=== PATIENT | female | born 1990 | race Caucasian/White ===

== ENCOUNTER → 2021-02-12 | Outpatient (CLI) | payer BC | LOC: LABMAIN 21:31 | PROVIDERS: ATTEND Internal Medicine | DX: Z20.822 Contact with and (suspected) exposure to COVID-19 (principal) | CPT/HCPCS: 87635 ==

== ENCOUNTER → 2021-03-16 | Outpatient (CLI) | payer BC | END | disposition home or self-care (01) | LOC: LABWHC1 03-15 10:31 | PROVIDERS: ATTEND Obstetrics & Gynecology Reproductive Endocrinology | DX: Z32.00 Encounter for pregnancy test, result unknown (principal) | CPT/HCPCS: 36415; 84144; 84702 ==

== ENCOUNTER → 2021-04-03 | Outpatient (CLI) | payer BC | END | disposition home or self-care (01) | LOC: LABWHC1 08:37 | PROVIDERS: ATTEND Obstetrics & Gynecology Reproductive Endocrinology | DX: N97.8 Female infertility of other origin (principal) | CPT/HCPCS: 36415; 84144 ==

== ENCOUNTER → 2021-04-13 | Outpatient (CLI) | payer BC | END | disposition home or self-care (01) | LOC: LABWHC1 08:04 | PROVIDERS: ATTEND Obstetrics & Gynecology Reproductive Endocrinology | DX: Z32.00 Encounter for pregnancy test, result unknown (principal) | CPT/HCPCS: 36415; 84144; 84702 ==

== ENCOUNTER → 2021-06-07 | Outpatient (CLI) | payer BC | END | disposition home or self-care (01) | LOC: LABWHC1 08:20 | PROVIDERS: ATTEND Obstetrics & Gynecology Reproductive Endocrinology | DX: N97.8 Female infertility of other origin (principal) | CPT/HCPCS: 36415; 84144 ==

== ENCOUNTER → 2021-06-19 | Outpatient (CLI) | payer BC | END | disposition home or self-care (01) | LOC: LABWHC1 07:54 | PROVIDERS: ATTEND Obstetrics & Gynecology Reproductive Endocrinology | DX: Z32.00 Encounter for pregnancy test, result unknown (principal) | CPT/HCPCS: 36415; 84144; 84702 ==

== ENCOUNTER → 2021-06-21 | Outpatient (CLI) | payer BC | END | disposition home or self-care (01) | LOC: LABWHC1 07:45 | PROVIDERS: ATTEND Obstetrics & Gynecology Reproductive Endocrinology | DX: O09.01 Supervision of pregnancy with history of infertility, first trimester (principal); Z13.29 Encounter for screening for other suspected endocrine disorder; Z3A.00 Weeks of gestation of pregnancy not specified | CPT/HCPCS: 36415; 84144; 84443; 84702 ==

== ENCOUNTER 2022-01-29 06:25 | Inpatient (IN) | payer BC ==
[2022-01-29] MEDS ORDERED: TERBUTALINE 1 MG/ML VIAL SQ PRN (07:15)
[2022-01-29] MEDS ORDERED: OXYTOCIN 30 UNITS/500 ML NS 30 UNIT in SALINE 1 500ML.BAG IV SCH ×2 (07:15→21:00)
[2022-01-29] MEDS ORDERED: LIDOCAINE 0.5% (PF) 5 MG/ML (50 ML SDV) SQ PRN (07:15)
[2022-01-29] MEDS ORDERED: AMPICILLIN 2,000 MG in SODIUM CHLORIDE 0.9% 100 ML IVPB STA (07:15)
[2022-01-29] MEDS: LACTATED RINGERS 1,000 ML IV SCH (07:37)
[2022-01-29 07:40] LABS: Basophils % (A) 0 %; Eosinophils # (A) 0.1 k/uL (0-0.7); Eosinophils % (A) 1 %; HCT 34.7 % (34.0-46.0); HGB 12.3 gm/dL (11.4-16.0); Lymphocytes # (A) 1.4 k/uL (1.0-4.8); Lymphocytes % (A) 12 %; MCH 31.5 pg (25.0-35.0); MCHC 35.3 g/dL (31.0-37.0); MCV 89.2 fL (80.0-100.0); Mean Platelet Volume 8.9; Monocytes # (A) 0.7 k/uL (0-1.0); Monocytes % (A) 6 %; Neutrophils # (A) 9.9 k/uL (1.3-7.7); Neutrophils % (A) 79 %; Platelet Count 215 k/uL (150-450); RBC 3.89 m/uL (3.80-5.40); WBC 12.4 k/uL (3.8-10.6)
--- NOTE | 2022-01-29 09:11 | P.HPOB ---
History of Present Illness H&P Date: 01/29/22 Chief Complaint: IUP @ 36 weeks, PPROM 31-year-old at 36 weeks of gestation presents with complaints of spontaneous rupture of membranes. Patient noted rupture membranes around 4:30 this morning. Patient denies contractions. Patient has been receiving routine care which has been essentially uncomplicated. was achieved with intrauterine insemination. Patient does note good movement . On bloodwork this patient has a blood type of A pos, rubella status immune, RPR is nonreactive, hepatitis surface antigen is negative, group beta strep culture is unknown as she is just 36 weeks . Review of Systems Constitutional: Denies chills, Denies fatigue, Denies fever Ears, nose, mouth and throat: Denies headache Cardiovascular: Reports leg edema Respiratory: Denies dyspnea Gastrointestinal: Denies nausea, Denies vomiting Genitourinary: Reports Past Medical History Past Medical History: No Reported History History of Any Multi-Drug Resistant Organisms: None Reported Past Surgical History: No Surgical Hx Reported Past Anesthesia/Blood Transfusion Reactions: No Reported Reaction Past Psychological History: No Psychological Hx Reported Smoking Status: Never smoker Past Alcohol Use History: None Reported Past Drug Use History: None Reported Medications and Allergies Home Medications Medication Instructions Recorded Confirmed Type Calcium Carbonate [Tums] 500 mg PO TID PRN 01/29/22 01/29/22 History Vit No.179/Iron/Folic 1 each PO DAILY 01/29/22 01/29/22 History [ Tablet] Allergies Allergy/AdvReac Type Severity Reaction Status Date / Time No Known Allergies Allergy Verified 01/29/22 06:37 Exam Osteopathic Statement: *. No significant issues noted on an osteopathic stru ctural exam other than those noted in the History and Physical/Consult. 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 heart tones are noted to be category 1 and she is [place] irregularly. On cervical exam /-2 vertex Results Result Diagrams: 01/29/22 07:25 Abnormal Lab Results - Last 24 Hours (Table) 01/29/22 Range/Units 07:25 WBC 12.4 H (3.8-10.6) k/uL Neutrophils # 9.9 H (1.3-7.7) k/uL Assessment and Plan (1) 36 weeks gestation of Current Visit: Yes Status: Acute Code(s): Z3A.36 - 36 WEEKS GESTATION OF SNOMED Code(s): 64644560 (2) PROM (premature rupture of membranes) Current Visit: Yes Status: Acute Code(s): O42.90 - MARLO ROM, 7TH0 BETW RUPT & ONST LABR, UNSP WEEKS OF GEST SNOMED Code(s): 49491490 Plan: 31-year-old at 36-0/7 weeks with premature rupture of membranes. IV antibiotics are begun secondary to gestational age. IV augmentation of labor with Pitocin is begun per hospital protocol. Options for analgesia are discussed including Stadol, epidural, and nitrous. Patient will consider.
[2022-01-29] MEDS ORDERED: BUTORPHANOL 1 MG/ML 1 ML VIAL IV PRN (09:12)
[2022-01-29] MEDS: AMPICILLIN 1,000 MG in SODIUM CHLORIDE 0.9% 50 ML IVPB SCH ×2 (12:20→15:35)
[2022-01-29] MEDS ORDERED: ROPIVACAINE 100 MG, fentaNYL (PF). 200 MCG in SODIUM CHLORIDE 0.9% 76 ML EPIDURAL ONE (13:49)
[2022-01-29] MEDS ORDERED: HYDROCORTISONE 2.5% RECTAL CREAM 30 GM TUBE RECTAL PRN (20:55)
[2022-01-29] MEDS ORDERED: ZOLPIDEM 5 MG TAB PO PRN (20:55)
[2022-01-29] MEDS ORDERED: diphenhydrAMINE 50 MG CAP PO PRN (20:55)
[2022-01-29] MEDS ORDERED: diphenhydrAMINE 50 MG/ML 1 ML VIAL IVP PRN ×2 (20:55)
[2022-01-29] MEDS ORDERED: BENZOCAINE/MENTHOL SPRAY 1 GM/SPRAY AEROSOL TOPICAL PRN (20:55)
[2022-01-29] MEDS ORDERED: SIMETHICONE 80 MG CHEWABLE PO PRN (20:55)
[2022-01-29] MEDS ORDERED: diphenhydrAMINE 25 MG CAP PO PRN (20:55)
[2022-01-29] MEDS ORDERED: LANOLIN CREAM 5 GM TUBE TOPICAL PRN (20:55)
--- NOTE | 2022-01-29 20:58 | P.PROBDLV ---
Vaginal Delivery Note - . Vaginal Delivery Note: 31-year-old at 36-0/7 weeks that presents to labor and delivery with complaints of spontaneous rupture of membranes around 4 AM. Patient has been receiving routine care which has been essentially uncomplicated, ultrasound for estimated weight for size less than dates done last week with an estimated weight of the 11th percentile. Patient had normal Dopplers at that time. Otherwise she has done well. She notes good movement and denied contractions upon admission. Patient was begun on antibiotic prophylaxis secondary to gestational age and Pitocin augmentation of labor. Patient made slow progress through labor but did eventually become uncomfortable requesting epidural placement. Epidural was placed without difficulty by the anesthesia department. Patient made slow progress to complete and began pushing. With excellent maternal effort she brought the infant down to a presentation. head followed by the anterior/posterior shoulder and body were delivered and placed on the maternal abdomen. S pontaneous cry was appreciated. The umbilical cord was doubly clamped and cut after two-minute delay. The placenta was delivered spontaneously intact with three-vessel cord being noted. On inspection the patient's vaginal vault a first-degree vaginal laceration is appreciated and repaired in the usual fashion with 3-0 Rapide after instillation of lidocaine. Uterus is noted be firm and below the umbilicus after delivery. Estimated blood loss 100 mL. Patient and infant tolerated delivery well and are resting comfortably. All counts were noted be correct 2 at the end of the delivery.
[2022-01-29] MEDS: IBUPROFEN 600 MG TAB PO SCH (21:53)
[2022-01-29] MEDS ORDERED: CALCIUM CARBONATE 500 MG CHEWABLE PO ONE (23:14)
[2022-01-29] MEDS: SENNOSIDES-DOCUSATE SODIUM 1 EACH TAB PO SCH (23:33)
[2022-01-30] MEDS: ACETAMINOPHEN TAB 325 MG TAB PO PRN ×4 (03:40→20:55)
[2022-01-30 03:49] LABS: Glucose,Whole Blood 52 mg/dL (70-110)
[2022-01-30] MEDS: SENNOSIDES-DOCUSATE SODIUM 1 EACH TAB PO SCH ×2 (08:46→20:54)
[2022-01-30] MEDS: PRENATAL VIT-IRON-FOLIC ACID 1 EACH TABLET PO SCH (08:56)
[2022-01-30] MEDS: IBUPROFEN 600 MG TAB PO SCH ×3 (09:37→18:26)
[2022-01-30] MEDS: SENNOSIDES 8.6 MG TAB PO SCH (09:38)
[2022-01-30] MEDS: LACTATED RINGERS 1,000 ML IV SCH (10:14)
--- NOTE | 2022-01-30 11:04 | P.PNOBGVD ---
Subjective - Subjective Principal diagnosis: PPD 1 Interval history: Pt is feeling well . she stated lochia is moderate. she denies concerns pain is well controlled, is a struggle but she continues to try and latch him. Patient reports: Reports appetite normal, Reports voiding normally, Reports pain well controlled, Reports ambulating normally [place]: doing well Objective - Latest Vital Signs Latest vital signs: Vital Signs Temp Pulse Resp BP Pulse Ox 01/30/22 08:00 98.2 F 82 17 117/79 01/30/22 00:00 87 18 112/64 01/29/22 22:45 92 18 110/56 01/29/22 22:15 97.8 F 118 H 18 113/58 01/29/22 21:45 87 18 104/57 01/29/22 21:30 95 18 116/61 01/29/22 21:15 96 18 121/71 99 01/29/22 21:00 93 18 120/66 01/29/22 20:45 98 F 100 20 115/56 100 Intake and Output 01/29/22 01/30/22 01/30/22 22:59 06:59 14:59 Output Total 215 Balance -215 Output: Output, Quantitative 215 Blood Loss Other: # Voids 1 - Exam Extremities: Present: normal, edema Abdomen: Present: normal appearance, soft Uterus: Present: normal, firm - Labs Labs: Abnormal Lab Results - Last 24 Hours (Table) 01/30/22 Range/Units 03:47 POC Glucose (mg/dL) 52 L (70-110) mg/dL Assessment and Plan (1) 36 weeks gestation of Current Visit: Yes Status: Acute Code(s): Z3A.36 - 36 WEEKS GESTATION OF SNOMED Code(s): 43433208 (2) PROM (premature rupture of membranes) Current Visit: Yes Status: Acute Code(s): O42.90 - MARLO ROM, 7TH0 BETW RUPT & ONST LABR, UNSP WEEKS OF GEST SNOMED Code(s): 62756185 (3) SGA (small for gestational age), , affecting care of mother, antepartum Current Visit: Yes Status: Acute Code(s): O36.5990 - MATERN CARE FOR OTH OR SUSP POOR FETL GRTH, UNSP TRI, UNSP SNOMED Code(s): 149898833 (4) Status post vaginal delivery Current Visit: Yes Status: Acute Code(s): UEW9575 - SNOMED Code(s): 598118168 (5) Obstetric vaginal laceration with first degree perineal laceration Current Visit: Yes Status: Acute Code(s): O70.0 - FIRST DEGREE PERINEAL LACERATION DURING DELIVERY SNOMED Code(s): 484328429 Plan: 31yo s/p . she is feeling well . plan to continue routine care and plan discharge tomorrow
[2022-01-30 16:33] VITALS: RESP 16
[2022-01-31] MEDS: IBUPROFEN 600 MG TAB PO SCH ×3 (00:59→10:35)
[2022-01-31] MEDS: SENNOSIDES 8.6 MG TAB PO SCH ×2 (00:59→09:34)
[2022-01-31] MEDS: AMPICILLIN 1,000 MG in SODIUM CHLORIDE 0.9% 50 ML IVPB SCH (02:42)
[2022-01-31] MEDS: SENNOSIDES-DOCUSATE SODIUM 1 EACH TAB PO SCH (09:34)
[2022-01-31] MEDS: PRENATAL VIT-IRON-FOLIC ACID 1 EACH TABLET PO SCH (09:34)
[2022-01-31 09:45] VITALS: BP 111/70; PULSE 90; TEMP 98.3
--- NOTE | 2022-01-31 13:26 | P.DS ---
Providers Date of admission: 01/29/22 06:58 Expected date of discharge: 01/31/22 Attending physician: Megan Palomo Primary care physician: Stated None - Discharge Diagnosis(es) (1) 36 weeks gestation of Current Visit: Yes Status: Acute (2) PROM (premature rupture of membranes) Current Visit: Yes Status: Acute (3) SGA (small for gestational age), , affecting care of mother, antepartum Current Visit: Yes Status: Acute (4) Status post vaginal delivery Current Visit: Yes Status: Acute (5) Obstetric vaginal laceration with first degree perineal laceration Current Visit: Yes Status: Acute Hospital Course: This is a 31-year-old G2 now P1 011 that presented to labor and delivery at 36 weeks of gestation with complaints of premature rupture of membranes. Fluid was noted to be clear in nature on 4 AM. Patient was admitted to labor and delivery and Pitocin induction of labor was begun along with IV antibiotic prophylaxis given gestational age and unknown GBS status. Patient progressed through labor eventually becoming uncomfortable and requesting epidural placement. Epidural was placed without difficulty by the anesthesia department. Patient progressed well through labor eventually becoming complete patient had a normal spontaneous vaginal delivery of a viable male infant weight of 5 lbs. 2 oz. Patient did sustain a first-degree vaginal laceration which was repaired in the usual fashion with 3-0 repeat. Patient's course has been uneventful on this day #2 she is ambulating and voiding without difficulty. She is tolerating a regular diet without nausea or vomiting. She states her lochia is moderate and she is breast-feeding without difficulty. Baby did undergo double phototherapy for jaundice and levels are dropping therefore she will be discharged home along with mom later today. Patient Condition at Discharge: Good Plan - Discharge Summary New Discharge Prescriptions: No Action Calcium Carbonate [Tums] 500 mg PO TID PRN PRN Reason: Heartburn Vit No.179/Iron/Folic [ Tablet] 1 each PO DAILY Discharge Medication List Calcium Carbonate [Tums] 500 mg PO TID PRN 01/29/22 [History] Vit No.179/Iron/Folic [ Tablet] 1 each PO DAILY 01/29/22 [History] Follow up Appointment(s)/Referral(s): Megan Palomo DO [Doctor of Osteopathic Medicine] - 4 Weeks Patient Instructions/Handouts: Vaginal Delivery (GEN), Vaginal Delivery (DC) Activity/Diet/Wound Care/Special Instructions: No tub baths or intercourse for 6 weeks . Patient is to call the office and schedule a routine was visit in 4 weeks. Bleeding precautions are reviewed. Patient states understanding. [id number] ibuprofen as needed q 6 hours for pain. Discharge Disposition: HOME SELF-CARE
== END 2022-01-31 16:19 | disposition home or self-care (01) | DRG 807 ==
LOC: FBPOP 06:25 → 4FBP 06:58
PROVIDERS: ADMIT Obstetrics & Gynecology; ATTEND Obstetrics & Gynecology Obstetrics
PROC: 10E0XZZ Delivery of Products of Conception, External Approach (ICD-10-PCS; principal; 2022-01-29)
PROC: 0HQ9XZZ Repair Perineum Skin, External Approach (ICD-10-PCS; 2022-01-29)
DX: O42.913 Preterm premature rupture of membranes, unspecified as to length of time between rupture and onset of labor, third trimester (principal); Z37.0 Single live birth; O36.5930 Maternal care for other known or suspected poor fetal growth, third trimester, not applicable or unspecified; Z3A.36 36 weeks gestation of pregnancy; O70.0 First degree perineal laceration during delivery
CPT/HCPCS: 59025; 84112; 85025; 86850; 86900; 86901; 88307; 99213

== ENCOUNTER → 2024-01-06 | Outpatient (CLI) | payer BC ==
--- NOTE | 2024-01-06 15:25 | XR ---
EXAMINATION TYPE: XR chest 2V DATE OF EXAM: 01/06/2024 3:14 PM COMPARISON: None CLINICAL INDICATION: Female, 33 years old with history of R05.9 COUGH; H TECHNIQUE: XR chest 2V Frontal and lateral views of the chest. FINDINGS: Lungs/Pleura: There is no evidence of pleural effusion, focal consolidation, or pneumothorax. Pulmonary vascularity: Unremarkable. Heart/mediastinum: Cardiomediastinal silhouette is unremarkable. Musculoskeletal: No acute osseous pathology. Other findings: None IMPRESSION: No acute cardiopulmonary disease/process. [facility] Brennan Snider, , 01/06/2024 3:23 PM
== END | disposition home or self-care (01) ==
LOC: RADXRMAIN 14:55
PROVIDERS: ATTEND Internal Medicine
DX: R07.9 Chest pain, unspecified (principal); R05.9 Cough, unspecified
CPT/HCPCS: 71046